=== PATIENT | female | born 1965 | race Caucasian/White ===

== ENCOUNTER 2021-04-14 13:33 | Emergency (ER) | payer OTHER ==
[2021-04-14 14:58] LABS: CORONAVIRUS COVID-19 NAA NEGATIVE (NEGATIVE)
[2021-04-14] MEDS ORDERED: Ondansetron 4 MG/2 ML SDV IVPUSH ONE (15:26)
[2021-04-14] MEDS ORDERED: Acetaminophen 325 MG Tab PO ONE ×2 (15:27→18:19)
[2021-04-14] MEDS ORDERED: Sodium Chloride 0.9% 1,000 ML IV SCH ×2 (15:30→18:15)
[2021-04-14] MEDS ORDERED: Ketorolac 30 MG/ML SDV IVPUSH ONE (18:02)
[2021-04-14] MEDS ORDERED: Ibuprofen 600 MG Tab PO ONE (18:05)
--- NOTE | 2021-04-14 18:09 | EDM.PDOC ---
<Jennifer Mendosa - Last Filed: 04/14/21 18:32> ED HPI GENERAL MEDICAL PROBLEM - General Chief Complaint: Fever Stated Complaint: DIZZY, SOB, HEADACHE, TEMP 102.6 Time Seen by Provider: 04/14/21 13:55 Source of Information: Reports: Patient, Family History Limitations: Reports: No Limitations - History of Present Illness INITIAL COMMENTS - FREE TEXT/NARRATIVE: pt started having marked diarrhea in the nite and she had about 12 stools before am. she is cramping and is having a severe headache. She has been nauseated but has not been vomiting. Onset: Other (started in the nite. ) Duration: Hour(s): Location: Reports: Head, Abdomen Associated Symptoms: Reports: Fever/Chills, Nausea/Vomiting, Other ( severe diarrhea. ) Headache Pain Score (Numeric/FACES): 6 - Related Data Allergies Allergy/AdvReac Type Severity Reaction Status Date / Time cat dander Allergy Other Verified 04/14/21 13:58 dog dander Allergy Other Verified 04/14/21 13:58 latex Allergy Rash Verified 04/14/21 13:58 lidocaine Allergy Other Verified 04/14/21 13:58 Home Meds: Home Meds Docusate Sodium [Colace] 100 mg PO DAILY 03/27/21 [History] Ferrous Sulfate 325 mg PO DAILY 03/27/21 [History] Gabapentin [Neurontin] 600 mg PO TID 03/27/21 [History] Losartan [Cozaar] 25 mg PO DAILY 03/27/21 [History] Pramipexole Di-HCl [Pramipexole Dihydrochloride] 0.5 mg PO DAILY 03/27/21 [History] Pramipexole Di-HCl [Pramipexole Dihydrochloride] 1 mg PO BID 03/27/21 [History] Riboflavin 400 mg PO DAILY 03/27/21 [History] Warfarin [Coumadin] 5 mg PO DAILY 03/27/21 [History] Past Medical History HEENT History: Reports: Impaired Vision Cardiovascular History: Reports: Hypertension Respiratory History: Reports: PE, Sleep Apnea Other Respiratory History: cpap Gastrointestinal History: Reports: Chronic Constipation [employer]ER History: Reports: Musculoskeletal History: Reports: Arthritis, Back Pain, Chronic Neurological History: Reports: Migraines Endocrine/Metabolic History: Reports: Obesity/BMI 30+ Hematologic History: Reports: Anticoagulation Therapy - Past Surgical History Head Surgeries/Procedures: Reports: None HEENT Surgical History: Reports: None Cardiovascular Surgical History: Reports: None Respiratory Surgical History: Reports: None GI Surgical History: Reports: Hernia, Abdominal Endocrine Surgical History: Reports: None Neurological Surgical History: Reports: None Musculoskeletal Surgical History: Reports: Other (See Below) Other Musculoskeletal Surgeries/Procedures:: right knee Dermatological Surgical History: Reports: None Social & Family History - Tobacco Use Tobacco Use Status *Q: Never Tobacco User Second Hand Smoke Exposure: No - Caffeine Use Caffeine Use: Reports: None - Recreational Drug Use Recreational Drug Use: No ED ROS GENERAL - Review of Systems Review Of Systems: See Below Constitutional: Reports: Weakness, Fatigue HEENT: Reports: No Symptoms Respiratory: Reports: No Symptoms Cardiovascular: Reports: No Symptoms Endocrine: Reports: No Symptoms GI/Abdominal: Reports: Diarrhea, Nausea : Reports: No Symptoms Musculoskeletal: Reports: No Symptoms Skin: Reports: No Symptoms ED EXAM, GENERAL - Physical Exam Exam: See Below Free Text/Narrative:: pt appeared to be very uncomfortable on arrival. She had a severe headache. She was having marked diarrhea. Exam Limited By: No Limitations General Appearance: Alert, Anxious, Moderate Distress, Other (pupils are equal and reactive. ) Ears: Normal TMs Nose: Normal Inspection Throat/Mouth: Normal Inspection Head: Atraumatic Neck: Normal Inspection Respiratory/Chest: No Respiratory Distress Cardiovascular: Regular Rate, Rhythm GI/Abdominal: Tender (Female) Exam: Deferred Rectal (Female) Exam: Deferred Back Exam: Normal Inspection Extremities: Normal Inspection Neurological: Alert, Oriented, Normal Cognition Course - Re-Assessments/Exams Free Text/Narrative Re-Assessment/Exam: 04/14/21 18:10 lab work showed mild dehydration. She has had only one stool since she has been here she still has a bad headache Departure - Departure Disposition: Home, Self-Care 01 Clinical Impression: Viral gastroenteritis, Dehydration - Discharge Information Instructions: Viral Gastroenteritis, Adult, Dehydration, Adult, [id number] Referrals: PCP,None [Primary Care Provider] - Forms: ED Department Discharge Care Plan Goals: Make sure to drink plenty of fluids to keep up with what is loss through diarrhea. I would recommend an electrolyte-based solution like Pedialyte or Gatorade Zero. I have also included a prescription in the [employer] machine for Zofran in case you become nauseated. Please return to the ED if you start to de velop any additional symptoms. Sepsis Event Note (ED) - Evaluation Sepsis Screening Result: Possible Sepsis Risk <Jac Amador - Last Filed: 04/14/21 20:21> Course - Vital Signs Last Recorded V/S: Last Vital Signs Temp 38.7 C H 04/14/21 14:02 Pulse 93 04/14/21 14:02 Resp 20 04/14/21 14:02 BP 141/79 H 04/14/21 14:02 Pulse Ox 97 04/14/21 14:02 - Orders/Labs/Meds Orders: Active Orders 24 hr Category Date Time Status Chest 1V Frontal [CR] Stat Exams 04/14/21 16:50 Taken Head wo Cont [CT] Stat Exams 04/14/21 19:39 Taken CULTURE BLOOD [BC] Urgent Lab 04/14/21 15:30 Received CULTURE BLOOD [BC] Urgent Lab 04/14/21 15:40 Received CULTURE URINE [RM] Stat Lab 04/14/21 15:31 Received Sodium Chloride 0.9% [Normal Saline] 1,000 ml Med 04/14/21 15:30 Active IV ASDIRECTED Sodium Chloride 0.9% [Normal Saline] 1,000 ml Med 04/14/21 18:15 Active IV ASDIRECTED Blood Culture x2 Reflex Set [OM.PC] Urgent Oth 04/14/21 15:28 Ordered Isolation [COMM] Stat Oth 04/14/21 14:00 Ordered Medication Orders Sodium Chloride (Normal Saline) 1,000 mls @ 999 mls/hr IV ASDIRECTED [facility] Last Admin: 04/14/21 15:40 Dose: 999 mls/hr Documented by: ARCADIO Sodium Chloride (Normal Saline) 1,000 mls @ 999 mls/hr IV ASDIRECTED [facility] Last Admin: 04/14/21 18:15 Dose: 999 mls/hr Documented by: KELSEY Labs: Laboratory Tests 04/14/21 04/14/21 04/14/21 Range/Units 14:10 14:13 14:13 WBC 7.7 (4.5-11.0) K/uL RBC 4.72 (3.30-5.50) M/uL Hgb 13.5 (12.0-15.0) g/dL Hct 41.8 (36.0-48.0) % MCV 89 (80-98) fL MCH 29 (27-31) pg MCHC 32 (32-36) % Plt Count 279 (150-400) K/uL Neut % (Auto) 82.0 H (36-66) % Lymph % (Auto) 11.3 L (24-44) % Person % (Auto) 5.4 (2-6) % Eos % (Auto) 1.2 L (2-4) % Baso % (Auto) 0.1 (0-1) % PT 15.9 H (9.5-12.0) sec INR 1.47 H (0.80-1.20) Sodium 142 (140-148) mmol/L Potassium 3.7 (3.6-5.2) mmol/L Chloride 105 (100-108) mmol/L Carbon Dioxide 27 (21-32) mmol/L Anion Gap 10.1 (5.0-14.0) mmol/L BUN 19 H (7-18) mg/dL Creatinine 1.1 H (0.6-1.0) mg/dL Est Cr Clr Drug Dosing 56.92 mL/min Estimated GFR (MDRD) 51 L (>60) Glucose 96 (74-106) mg/dL Calcium 8.4 L (8.5-10.1) mg/dL Total Bilirubin 0.5 (0.2-1.0) mg/dL AST 15 (15-37) U/L ALT 39 (12-78) U/L Alkaline Phosphatase 56 (46-116) U/L Total Protein 6.7 (6.4-8.2) g/dL Albumin 3.4 (3.4-5.0) g/dL Globulin 3.3 (2.3-3.5) g/dL Albumin/Globulin Ratio 1.0 L (1.2-2.2) Urine Color (YELLOW) Urine Appearance (CLEAR) Urine pH (5.0-8.0) Ur Specific [place] (1.008-1.030) Urine Protein (NEGATIVE) mg/dL Urine Glucose (UA) (NEGATIVE) mg/dL Urine Ketones (NEGATIVE) mg/dL Urine Occult Blood (NEGATIVE) Urine Nitrite (NEGATIVE) Urine Bilirubin (NEGATIVE) Urine Urobilinogen (0.2-1.0) EU/dL Ur Leukocyte Esterase (NEGATIVE) Urine RBC (0-5) Urine WBC (0-5) Ur Epithelial Cells Amorphous Sediment Urine Bacteria Urine Mucus Influenza Type A RNA (NEGATIVE) RSV RNA (INAAT) (NEGATIVE) Influenza Type B RNA (NEGATIVE) SARS-CoV-2 RNA (ROBERTO) (NEGATIVE) 04/14/21 04/14/21 Range/Units 14:15 15:10 WBC (4.5-11.0) K/uL RBC (3.30-5.50) M/uL Hgb (12.0-15.0) g/dL Hct (36.0-48.0) % MCV (80-98) fL MCH (27-31) pg MCHC (32-36) % Plt Count (150-400) K/uL Neut % (Auto) (36-66) % Lymph % (Auto) (24-44) % Person % (Auto) (2-6) % Eos % (Auto) (2-4) % Baso % (Auto) (0-1) % PT (9.5-12.0) sec INR (0.80-1.20) Sodium (140-148) mmol/L Potassium (3.6-5.2) mmol/L Chloride (100-108) mmol/L Carbon Dioxide (21-32) mmol/L Anion Gap (5.0-14.0) mmol/L BUN (7-18) mg/dL Creatinine (0.6-1.0) mg/dL Est Cr Clr Drug Dosing mL/min Estimated GFR (MDRD) (>60) Glucose (74-106) mg/dL Calcium (8.5-10.1) mg/dL Total Bilirubin (0.2-1.0) mg/dL AST (15-37) U/L ALT (12-78) U/L Alkaline Phosphatase (46-116) U/L Total Protein (6.4-8.2) g/dL Albumin (3.4-5.0) g/dL Globulin (2.3-3.5) g/dL Albumin/Globulin Ratio (1.2-2.2) Urine Color Yellow (YELLOW) Urine Appearance Cloudy A (CLEAR) Urine pH 7.0 (5.0-8.0) Ur Specific [place] 1.020 (1.008-1.030) Urine Protein Negative (NEGATIVE) mg/dL Urine Glucose (UA) Negative (NEGATIVE) mg/dL Urine Ketones Negative (NEGATIVE) mg/dL Urine Occult Blood Negative (NEGATIVE) Urine Nitrite Negative (NEGATIVE) Urine Bilirubin Negative (NEGATIVE) Urine Urobilinogen 0.2 (0.2-1.0) EU/dL Ur Leukocyte Esterase Negative (NEGATIVE) Urine RBC 0-5 (0-5) Urine WBC 0-5 (0-5) Ur Epithelial Cells Many Amorphous Sediment Not seen Urine Bacteria Moderate Urine Mucus Moderate Influenza Type A RNA Negative (NEGATIVE) RSV RNA (INAAT) Negative (NEGATIVE) Influenza Type B RNA Negative (NEGATIVE) SARS-CoV-2 RNA (ROBERTO) Negative (NEGATIVE) Meds: Medications Generic Name Dose Route Start Last Admin Trade Name Freq PRN Reason Stop Dose Admin Sodium Chloride 1,000 mls @ 999 mls/hr 04/14/21 15:30 04/14/21 15:40 Normal Saline IV 999 mls/hr ASDIRECTED [facility] Administration Sodium Chloride 1,000 mls @ 999 mls/hr 04/14/21 18:15 04/14/21 18:15 Normal Saline IV 999 mls/hr ASDIRECTED [facility] Administration Discontinued Medications Generic Name Dose Route Start Last Admin Trade Name Freq PRN Reason Stop Dose Admin Acetaminophen 650 mg 04/14/21 15:27 04/14/21 15:39 Acetaminophen 325 Mg Tab PO 04/14/21 15:28 650 mg NOW ONE Administration Acetaminophen 650 mg 04/14/21 18:19 04/14/21 18:27 Acetaminophen 325 Mg Tab PO 04/14/21 18:20 650 mg NOW ONE Administration Ibuprofen 600 mg 04/14/21 18:05 04/14/21 18:20 Ibuprofen 600 Mg Tab PO 04/14/21 18:06 Not Given ONETIME ONE Ketorolac Tromethamine 30 mg 04/14/21 18:02 04/14/21 18:15 Ketorolac 30 Mg/Ml Sdv IVPUSH 04/14/21 18:03 30 mg ONETIME ONE Administration Ondansetron HCl 4 mg 04/14/21 15:26 04/14/21 15:39 Ondansetron 4 Mg/2 Ml Sdv IVPUSH 04/14/21 15:27 4 mg ONETIME ONE Administration - Re-Assessments/Exams Free Text/Narrative Re-Assessment/Exam: 04/14/21 18:30 Dr. Amador is assuming care of the patient from Dr. Mendosa. At this time, the patient received a dose of Toradol for her headache. We will reassess to see if there is any improvement. 04/14/21 19:40 the patient is doing better after the Toradol concerning the headache, however, I do not have a good explanation for having the severe headache. Patient does have a remote history for migraine headaches, but has not had any recent headaches and starting on B2 and magnesium. We did discuss the pros and cons of doing a CT of the brain to rule out any bleed especially since she is on anticoagulation. She is agreeable to this so we will proceed with a noncontrast CT of the head to rule out any intracranial process. 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 This time, I believe the patient is suitable for discharge home in satisfactory condition. Indications return to the ED were discussed. I recommended that she hydrate with the electrolyte- based solution like Gatorade Zero or Pedialyte. Departure - Departure Time of Disposition: 20:19 Sepsis Event Note (ED) - Focused Exam Vital Signs: Vital Signs Temp Pulse Resp BP Pulse Ox 04/14/21 14:02 38.7 C H 93 20 141/79 H 97 04/14/21 13:59 38.7 C H 93 20 141/79 H 97 - My Orders Last 24 Hours: My Active Orders 04/14/21 19:39 Head wo Cont [CT] Stat - Assessment/Plan Last 24 Hours: My Active Orders 04/14/21 19:39 Head wo Cont [CT] Stat
--- NOTE | 2021-04-14 20:33 | CRLCT ---
For Patients: As a result of the Century Cures Act, medical imaging exams and procedure reports are released immediately into your electronic medical record. You may view this report before your referring provider. If you have questions, please contact your health care provider. Indication : Severe headache Technique : Noncontrast head CT FINDINGS: No acute intracranial hemorrhage, edema, or mass effect. Mild prominence of the sella and/or pituitary gland is nonspecific but likely benign. Minimal mucosal thickening involving frontal and ethmoidal sinuses. Mild cerebral atrophy. Remainder negative. IMPRESSION: 1. No acute intracranial disease. 2. The sella and/or pituitary are mildly prominent. If clinically desired, findings could be correlated to follow-up routine MRI of the pituitary gland. Suspect benign etiology. 3. Mild cerebral atrophy. Please note that all CT scans at this facility use dose modulation, iterative reconstruction, and/or weight-based dosing when appropriate to reduce radiation dose to as low as reasonably achievable. Dictated by Simon Whitt MD @ 04/14/2021 8:32:[address] Simon Whitt @ Apr 14 2021 8:32PM
--- NOTE | 2021-04-15 13:19 | CR ---
CHEST: Portable 04/14/2021 at 5:12 PM CLINICAL HISTORY:Fever COMPARISON:None FINDINGS: The heart is enlarged. Pulmonary vascularity is normal. There are atherosclerotic changes in the aorta. There is streaky density in the left midlung field. This likely represent some scarring or streaky atelectasis. Impression: No acute cardiac pulmonary process Mild cardiomegaly
== END 2021-04-14 20:23 | disposition home or self-care (01) ==
LOC: JP.ED 13:33
DX: A08.4 Viral intestinal infection, unspecified (principal); E86.0 Dehydration; I10 Essential (primary) hypertension; E66.9 Obesity, unspecified; Z68.41 Body mass index [BMI] 40.0-44.9, adult; Z86.711 Personal history of pulmonary embolism; Z79.01 Long term (current) use of anticoagulants; Z79.899 Other long term (current) drug therapy; Z91.048 Other nonmedicinal substance allergy status; Z91.040 Latex allergy status; Z88.4 Allergy status to anesthetic agent; Z20.822 Contact with and (suspected) exposure to COVID-19
CPT/HCPCS: 0241U; 36415; 70450; 71045; 80053; 81001; 85025; 85610; 87040; 87086; 96374; 96375; 99284; A9270; J1885; J2405; J7030

== ENCOUNTER 2021-06-10 06:48 | Day surgery (SDC) | payer OTHER ==
[~2021-06-10 06:48] MED LIST: Bupivacaine 0.5% 50 ML MDV ONE
[2021-06-10] MEDS ORDERED: Lactated Ringers 1,000 ML IV SCH (07:00)
[2021-06-10] MEDS ORDERED: Nozin Nasal Sanitizer NASBOTH ONE (07:00)
[2021-06-10] MEDS ORDERED: Propofol 200 MG/20 ML SDV ONE (07:27)
[2021-06-10] MEDS ORDERED: Midazolam 1 MG/ML 2 ML SDV ONE (07:27)
[2021-06-10] MEDS ORDERED: fentaNYL 100 MCG/2 ML SDV ONE (07:27)
[2021-06-10] MEDS ORDERED: Bupivacaine 0.5% 50 ML MDV ONE (07:42)
[2021-06-10] MEDS ORDERED: ceFAZolin 2 GM in Premix Bag 1 BAG IV ONE (08:30)
[2021-06-10] MEDS ORDERED: Acetaminophen/HYDROcodone 325-5 MG Tab PO ONE (10:38)
--- NOTE | 2021-07-22 20:45 | OR ---
DATE OF PROCEDURE: 06/10/2021 SURGEON: Juan Hoffmann MD PREOPERATIVE DIAGNOSIS: Stenosing tenosynovitis, right 4th finger. POSTOPERATIVE DIAGNOSIS: Stenosing tenosynovitis, right 4th finger. PROCEDURE PERFORMED: Release of A1 zakiya, trigger finger release, right 4th finger. ANESTHESIA: Local with sedation. INDICATIONS: Kiley is a 56-year-old female with a history of significant stenosing tenosynovitis of the right 4th finger. The finger consistently locks in flexion. She has worn a brace to maintain extension at the metacarpophalangeal joint. She has tried physical therapy and injection without relief. She now presents for release. Risks, benefits, potential complications were discussed. DESCRIPTION OF PROCEDURE: After adequate anesthesia was obtained, the patient placed supine. Right hand is prepped and draped in sterile fashion. A small transverse incision was made in line with the flexion crease over the A1 zakiya. This was carried down through the subcutaneous tissues and blunt dissection used to come down on to the flexor tendons. Zakiya is divided with a 15 blade under direct visualization. Division is completed with the tenotomy scissor proximally and distally. Contents of the tunnel including both flexor tendons were evaluated with no significant mass. The finger was taken through range of motion with no evidence of catching or locking. The wound was irrigated. It was then closed with #4 nylon in interrupted fashion. Skin was infiltrated with 0.5% Marcaine and a sterile dressing was applied. The patient tolerated procedure well. No complications. Taken from the operating room in stable condition. Juan Hoffmann MD /[id number] [facility]
== END 2021-06-10 11:25 | disposition home or self-care (01) ==
LOC: JP.SDS 06:48
PROVIDERS: ATTEND Specialist
DX: M65.841 Other synovitis and tenosynovitis, right hand (principal); M65.341 Trigger finger, right ring finger; G47.33 Obstructive sleep apnea (adult) (pediatric)
CPT/HCPCS: 26055; 36415; 80053; 85025; A9270; J0690; J2250; J2704; J3010; J3490; J7120

== ENCOUNTER 2022-03-26 21:38 | Emergency (ER) | payer OTHER ==
[2022-03-27] MEDS ORDERED: Ketorolac 30 MG/ML SDV IVPUSH ONE (01:46)
[2022-03-27] MEDS ORDERED: Methocarbamol 500 MG Tab PO ONE (02:00)
[2022-03-27] MEDS ORDERED: HYDROmorphone 1 MG/ML Syringe IVPUSH ONE (02:00)
== END 2022-03-27 03:38 | disposition home or self-care (01) ==
LOC: JP.ED 21:38
DX: M62.838 Other muscle spasm (principal); I10 Essential (primary) hypertension; E66.9 Obesity, unspecified; Z68.42 Body mass index [BMI] 45.0-49.9, adult; Z86.16 Personal history of COVID-19; Z79.899 Other long term (current) drug therapy; Z79.01 Long term (current) use of anticoagulants; Z91.09 Other allergy status, other than to drugs and biological substances; Z91.040 Latex allergy status; Z88.4 Allergy status to anesthetic agent
CPT/HCPCS: 96374; 96375; 99282; 99283; A9270; J1170; J1885

== ENCOUNTER 2023-03-18 19:56 | Emergency (ER) | payer OTHER | END 2023-03-18 21:06 | disposition home or self-care (01) | LOC: JP.ED 19:56 | DX: S80.01XA Contusion of right knee, initial encounter (principal); I10 Essential (primary) hypertension; E66.9 Obesity, unspecified; Z68.45 Body mass index [BMI] 70 or greater, adult; Z86.16 Personal history of COVID-19; Z86.711 Personal history of pulmonary embolism; Z79.01 Long term (current) use of anticoagulants; Z79.899 Other long term (current) drug therapy; Z91.040 Latex allergy status; Z91.048 Other nonmedicinal substance allergy status; Z88.4 Allergy status to anesthetic agent; W01.0XXA Fall on same level from slipping, tripping and stumbling without subsequent striking against object, initial encounter | CPT/HCPCS: 73564-RT; 99283 ==

== ENCOUNTER 2025-04-28 14:20 | Emergency (ER) | payer OTHER ==
[2025-04-28 14:43] LABS: BASOPHILS ABSOLUTE AUTO 0.03 K/uL (0.00-0.10); BASOPHILS PERCENT AUTO 0.4 % (0.1-1.3); EOSINOPHILS ABSOLUTE AUTO 0.16 K/uL (0.00-0.40); EOSINOPHILS PERCENT AUTO 2.2 % (0.0-5.4); IMMATURE GRAN PERCENT AUTO 0.1 % (0.0-0.7); LYMPHOCYTES ABSOLUTE AUTO 1.50 K/uL (0.8-3.3); LYMPHOCYTES PERCENT AUTO 20.9 % (11.4-47.7); MONOCYTES ABSOLUTE AUTO 0.71 K/uL (0.20-0.90); MONOCYTES PERCENT AUTO 9.9 % (3.3-12.6); NEUTROPHILS ABSOLUTE AUTO 4.75 K/uL (1.0-7.6); NEUTROPHILS PERCENT AUTO 66.5 % (40.0-78.1); PLATELET COUNT,PLT 293 K/uL (130-375); RED BLOOD CELL COUNT 4.23 M/uL (3.77-5.24); WHITE BLOOD CELL COUNT,WBC 7.2 K/uL (3.2-11.0)
[2025-04-28 14:44] LABS: IMMATURE GRAN ABSOLUTE AUTO 0.01 K/uL (0.00-0.23)
[2025-04-28 14:47] LABS: BASE EXCESS VENOUS 8.4 mm/L; BICARBONATE,VENOUS 30.0 mmol/L; O2 SATURATION VENOUS 54.9; OXYHEMOGLOBIN 53.0 %; PCO2 VENOUS 30.2 mm/Hg; PH,VENOUS 7.603 (7.350-7.450); TOTAL HEMOGLOBIN 12.7 g/dL (12.0-16.0)
[2025-04-28 14:57] LABS: PO2 VENOUS 26.7 mm/Hg
[2025-04-28] MEDS: LORazepam 2 MG/ML SDV IVPUSH ONE ×2 (15:06→17:45)
[2025-04-28 15:13] LABS: A/G RATIO 1.1 (1.2-2.2); ALANINE AMINOTRANSFERASE,ALT 32 U/L (12-78); ASPARTATE AMNIOTRANSFERASE,AST 23 U/L (15-37); BILIRUBIN TOTAL 0.6 mg/dL (0.2-1.0); BLOOD UREA NITROGEN,BUN 16 mg/dL (7-18); CARBON DIOXIDE,CO2 31 mmol/L (21-32); CHLORIDE,CL 101 mmol/L (100-108); CREATININE 1.3 mg/dL (0.6-1.0); EST CRCL DRUG DOSING (CG) 45.84 mL/min; ESTIMATED GFR 47 mL/min (>60); GLUCOSE RANDOM 90 mg/dL (74-106); PROTEIN TOTAL,TP 6.8 g/dL (6.4-8.2); SODIUM,NA 141 mmol/L (140-148)
[2025-04-28 15:18] LABS: POTASSIUM,K 2.8 mmol/L (3.6-5.2)
[2025-04-28] MEDS: Iopamidol 755 Mg/ML 100 ML Bottle IV SCH (17:39)
[2025-04-28] MEDS: Potassium Chloride 10 MEQ in Premix Bag 4 BAG IV SCH (17:53)
[2025-04-28] MEDS: Potassium Chloride 20 MEQ Tab.ER PO ONE (17:53)
[2025-04-28 17:56] LABS: APPEARANCE,URINE CLEAR (CLEAR); GLUCOSE,URINE NEGATIVE (NEGATIVE); OCCULT BLOOD,URINE NEGATIVE (NEGATIVE)
[2025-04-28 18:07] LABS: EPITHELIAL CELLS,URINE OCCASIONAL
[2025-04-28 21:48] LABS: BLOOD UREA NITROGEN,BUN 16.0 mg/dL (7-18); CARBON DIOXIDE,CO2 30.0 mmol/L (21-32); CHLORIDE,CL 103.0 mmol/L (100-108); CREATININE 1.1 mg/dL (0.6-1.0); EST CRCL DRUG DOSING (CG) 54.18 mL/min; ESTIMATED GFR 57.0 mL/min (>60); GLUCOSE RANDOM 119.0 mg/dL (74-106); POTASSIUM,K 3.1 mmol/L (3.6-5.2); SODIUM,NA 141.0 mmol/L (140-148)
[2025-04-28 23:20] LABS: BLOOD UREA NITROGEN,BUN 16.0 mg/dL (7-18); CARBON DIOXIDE,CO2 33.0 mmol/L (21-32); CHLORIDE,CL 107.0 mmol/L (100-108); CREATININE 1.1 mg/dL (0.6-1.0); EST CRCL DRUG DOSING (CG) 54.18 mL/min; ESTIMATED GFR 57.0 mL/min (>60); GLUCOSE RANDOM 114.0 mg/dL (74-106); POTASSIUM,K 3.3 mmol/L (3.6-5.2); SODIUM,NA 143.0 mmol/L (140-148)
== END 2025-04-29 00:02 | disposition home or self-care (01) ==
LOC: JP.ED 14:20
DX: E87.6 Hypokalemia (principal); E80.6 Other disorders of bilirubin metabolism; I10 Essential (primary) hypertension; E78.00 Pure hypercholesterolemia, unspecified; E66.9 Obesity, unspecified; Z86.16 Personal history of COVID-19; Z79.899 Other long term (current) drug therapy; Z79.01 Long term (current) use of anticoagulants; Z91.040 Latex allergy status; Z88.3 Allergy status to other anti-infective agents; Z91.048 Other nonmedicinal substance allergy status; Z68.37 Body mass index [BMI] 37.0-37.9, adult
CPT/HCPCS: 36415; 70450; 71045; 71275; 80048; 80053; 81001; 82803; 83735; 84132; 84484; 85025; 85379; 93005; 93010; 96361; 96365; 96366; 96375; 96376; 99284; 99285; A9270; J2060; J3480; J7030; Q9967

== ENCOUNTER 2025-05-27 15:59 | Inpatient (IN) | payer OTHER ==
[2025-05-27 18:29] LABS: BASOPHILS PERCENT AUTO 0.2 % (0.1-1.3); EOSINOPHILS ABSOLUTE AUTO 0.06 K/uL (0.00-0.40); EOSINOPHILS PERCENT AUTO 0.7 % (0.0-5.4); IMMATURE GRAN ABSOLUTE AUTO 0.03 K/uL (0.00-0.23); IMMATURE GRAN PERCENT AUTO 0.3 % (0.0-0.7); LYMPHOCYTES ABSOLUTE AUTO 1.26 K/uL (0.8-3.3); LYMPHOCYTES PERCENT AUTO 13.9 % (11.4-47.7); MONOCYTES ABSOLUTE AUTO 0.66 K/uL (0.20-0.90); MONOCYTES PERCENT AUTO 7.3 % (3.3-12.6); NEUTROPHILS ABSOLUTE AUTO 7.03 K/uL (1.0-7.6); NEUTROPHILS PERCENT AUTO 77.6 % (40.0-78.1); PLATELET COUNT,PLT 269 K/uL (130-375); RED BLOOD CELL COUNT 4.22 M/uL (3.77-5.24); WHITE BLOOD CELL COUNT,WBC 9.1 K/uL (3.2-11.0)
[2025-05-27 18:30] LABS: BASOPHILS ABSOLUTE AUTO 0.02 K/uL (0.00-0.10)
[2025-05-27] MEDS: Ondansetron 4 MG/2 ML SDV IVPUSH ONE (18:40)
[2025-05-27 18:51] LABS: A/G RATIO 1.1 (1.2-2.2); ALANINE AMINOTRANSFERASE,ALT 25 U/L (12-78); ASPARTATE AMNIOTRANSFERASE,AST 17 U/L (15-37); BILIRUBIN TOTAL 1.2 mg/dL (0.2-1.0); BLOOD UREA NITROGEN,BUN 17 mg/dL (7-18); CARBON DIOXIDE,CO2 28 mmol/L (21-32); CHLORIDE,CL 99 mmol/L (100-108); CREATININE 1.0 mg/dL (0.6-1.0); EST CRCL DRUG DOSING (CG) 59.60 mL/min; ESTIMATED GFR 64 mL/min (>60); GLUCOSE RANDOM 93 mg/dL (74-106); POTASSIUM,K 2.9 mmol/L (3.6-5.2); PROTEIN TOTAL,TP 7.1 g/dL (6.4-8.2); SODIUM,NA 138 mmol/L (140-148)
[2025-05-27] MEDS: Sodium Chloride 0.9% 10 ML Syringe FLUSH ONE (18:55)
[2025-05-27] MEDS: Iopamidol 612 MG/ML 100 ML Bottle IV PRN (18:55)
[2025-05-27] MEDS: Potassium Chloride 20 MEQ Tab.ER PO ONE (19:26)
[2025-05-27 20:50] LABS: APPEARANCE,URINE CLEAR (CLEAR); GLUCOSE,URINE NEGATIVE (NEGATIVE); OCCULT BLOOD,URINE TRACE-INTACT (NEGATIVE)
[2025-05-27 20:57] LABS: SQUAMOUS EPITHELIAL CELLS,UR RARE /HPF; UROTHELIAL CELLS,URINE NOT SEEN /HPF
[2025-05-27] MEDS ORDERED: Naloxone 0.4 MG/ML SDV IVPUSH PRN (23:04)
[2025-05-27] MEDS ORDERED: LORazepam 2 MG/ML SDV IV PRN (23:04)
[2025-05-28] MEDS: Acetaminophen/HYDROcodone 325-5 MG Tab PO PRN (02:11)
[2025-05-28 06:02] LABS: BASOPHILS ABSOLUTE AUTO 0.04 K/uL (0.00-0.10); BASOPHILS PERCENT AUTO 0.5 % (0.1-1.3); EOSINOPHILS ABSOLUTE AUTO 0.05 K/uL (0.00-0.40); EOSINOPHILS PERCENT AUTO 0.6 % (0.0-5.4); IMMATURE GRAN ABSOLUTE AUTO 0.03 K/uL (0.00-0.23); IMMATURE GRAN PERCENT AUTO 0.4 % (0.0-0.7); LYMPHOCYTES ABSOLUTE AUTO 1.47 K/uL (0.8-3.3); LYMPHOCYTES PERCENT AUTO 18.7 % (11.4-47.7); MONOCYTES ABSOLUTE AUTO 0.73 K/uL (0.20-0.90); MONOCYTES PERCENT AUTO 9.3 % (3.3-12.6); NEUTROPHILS ABSOLUTE AUTO 5.55 K/uL (1.0-7.6); NEUTROPHILS PERCENT AUTO 70.5 % (40.0-78.1); PLATELET COUNT,PLT 228 K/uL (130-375); RED BLOOD CELL COUNT 3.61 M/uL (3.77-5.24); WHITE BLOOD CELL COUNT,WBC 7.9 K/uL (3.2-11.0)
[2025-05-28 06:17] LABS: BLOOD UREA NITROGEN,BUN 16.0 mg/dL (7-18); CARBON DIOXIDE,CO2 30.0 mmol/L (21-32); CHLORIDE,CL 104.0 mmol/L (100-108); CREATININE 1.0 mg/dL (0.6-1.0); EST CRCL DRUG DOSING (CG) 59.6 mL/min; ESTIMATED GFR 64.0 mL/min (>60); GLUCOSE RANDOM 104.0 mg/dL (74-106); POTASSIUM,K 3.8 mmol/L (3.6-5.2); SODIUM,NA 139.0 mmol/L (140-148)
[2025-05-28] MEDS: Ketorolac 30 MG/ML SDV IVPUSH ONE (09:54)
[2025-05-28] MEDS: Norepinephrine Bit/D5W Premix 4 MG in Premix Bag 1 BAG IV SCH (15:02)
[2025-05-28] MEDS: Hydrocortisone Sodium Succinate 100 MG/2 ML SDV IVPUSH ONE (15:10)
[2025-05-28] MEDS: Norepinephrine Bit/D5W Premix 250 ML ONE (15:23)
[2025-05-28] MEDS: Ketorolac 15 MG/ML SDV IVPUSH SCH (15:58)
[2025-05-29 08:45] LABS: BASOPHILS ABSOLUTE AUTO 0.03 K/uL (0.00-0.10); BASOPHILS PERCENT AUTO 0.5 % (0.1-1.3); EOSINOPHILS ABSOLUTE AUTO 0.16 K/uL (0.00-0.40); EOSINOPHILS PERCENT AUTO 2.5 % (0.0-5.4); IMMATURE GRAN PERCENT AUTO 0.3 % (0.0-0.7); LYMPHOCYTES ABSOLUTE AUTO 1.73 K/uL (0.8-3.3); LYMPHOCYTES PERCENT AUTO 27.5 % (11.4-47.7); MONOCYTES ABSOLUTE AUTO 0.52 K/uL (0.20-0.90); MONOCYTES PERCENT AUTO 8.3 % (3.3-12.6); NEUTROPHILS ABSOLUTE AUTO 3.83 K/uL (1.0-7.6); NEUTROPHILS PERCENT AUTO 60.9 % (40.0-78.1); PLATELET COUNT,PLT 212 K/uL (130-375); RED BLOOD CELL COUNT 3.61 M/uL (3.77-5.24); WHITE BLOOD CELL COUNT,WBC 6.3 K/uL (3.2-11.0)
[2025-05-29 08:47] LABS: IMMATURE GRAN ABSOLUTE AUTO 0.02 K/uL (0.00-0.23)
[2025-05-29 09:05] LABS: A/G RATIO 0.8 (1.2-2.2); ALANINE AMINOTRANSFERASE,ALT 21 U/L (12-78); ASPARTATE AMNIOTRANSFERASE,AST 15 U/L (15-37); BILIRUBIN TOTAL 0.3 mg/dL (0.2-1.0); BLOOD UREA NITROGEN,BUN 14 mg/dL (7-18); CARBON DIOXIDE,CO2 28 mmol/L (21-32); CHLORIDE,CL 108 mmol/L (100-108); CREATININE 0.8 mg/dL (0.6-1.0); EST CRCL DRUG DOSING (CG) 74.49 mL/min; ESTIMATED GFR 84 mL/min (>60); GLUCOSE RANDOM 149 mg/dL (74-106); POTASSIUM,K 3.9 mmol/L (3.6-5.2); PROTEIN TOTAL,TP 5.8 g/dL (6.4-8.2); SODIUM,NA 143 mmol/L (140-148)
[2025-05-29] MEDS: SODIUM CHLORIDE 0.9% IV ONE (12:33)
[2025-05-29] MEDS: VANCOMYCIN IV ONE (12:33)
[2025-05-29] MEDS: Gadoteridol 279.3 MG/ML 20 ML SDV IV SCH (14:23)
[2025-05-30 06:10] LABS: CREATININE 0.7 mg/dL (0.6-1.0); EST CRCL DRUG DOSING (CG) 85.14 mL/min; ESTIMATED GFR 98.0 mL/min (>60); VANCOMYCIN RANDOM 23.6 ug/mL (0.0-50.0)
[2025-05-30 08:20] LABS: PLATELET COUNT,PLT 216.0 K/uL (130-375); RED BLOOD CELL COUNT 3.36 M/uL (3.77-5.24); WHITE BLOOD CELL COUNT,WBC 4.8 K/uL (3.2-11.0)
[2025-05-31 07:52] LABS: CREATININE 0.6 mg/dL (0.6-1.0); EST CRCL DRUG DOSING (CG) 99.33 mL/min; ESTIMATED GFR 102.0 mL/min (>60)
[2025-06-01 06:45] LABS: CREATININE 0.6 mg/dL (0.6-1.0); EST CRCL DRUG DOSING (CG) 99.33 mL/min; ESTIMATED GFR 102.0 mL/min (>60); VANCOMYCIN RANDOM 26.2 ug/mL (0.0-50.0)
[2025-06-01 11:11] LABS: BASOPHILS PERCENT AUTO 0.4 % (0.1-1.3); EOSINOPHILS ABSOLUTE AUTO 0.28 K/uL (0.00-0.40); EOSINOPHILS PERCENT AUTO 6.2 % (0.0-5.4); IMMATURE GRAN PERCENT AUTO 0.2 % (0.0-0.7); LYMPHOCYTES ABSOLUTE AUTO 1.74 K/uL (0.8-3.3); LYMPHOCYTES PERCENT AUTO 38.3 % (11.4-47.7); MONOCYTES ABSOLUTE AUTO 0.38 K/uL (0.20-0.90); MONOCYTES PERCENT AUTO 8.4 % (3.3-12.6); NEUTROPHILS ABSOLUTE AUTO 2.11 K/uL (1.0-7.6); NEUTROPHILS PERCENT AUTO 46.5 % (40.0-78.1); PLATELET COUNT,PLT 242 K/uL (130-375); RED BLOOD CELL COUNT 3.40 M/uL (3.77-5.24); WHITE BLOOD CELL COUNT,WBC 4.5 K/uL (3.2-11.0)
[2025-06-01 11:19] LABS: BASOPHILS ABSOLUTE AUTO 0.02 K/uL (0.00-0.10); IMMATURE GRAN ABSOLUTE AUTO 0.01 K/uL (0.00-0.23)
[2025-06-01 11:21] LABS: A/G RATIO 0.9 (1.2-2.2); ALANINE AMINOTRANSFERASE,ALT 25 U/L (12-78); ASPARTATE AMNIOTRANSFERASE,AST 23 U/L (15-37); BILIRUBIN TOTAL 0.2 mg/dL (0.2-1.0); BLOOD UREA NITROGEN,BUN 18 mg/dL (7-18); CARBON DIOXIDE,CO2 25 mmol/L (21-32); CHLORIDE,CL 107 mmol/L (100-108); CREATININE 0.6 mg/dL (0.6-1.0); EST CRCL DRUG DOSING (CG) 99.33 mL/min; ESTIMATED GFR 102 mL/min (>60); GLUCOSE RANDOM 96 mg/dL (74-106); POTASSIUM,K 4.0 mmol/L (3.6-5.2); PROTEIN TOTAL,TP 5.7 g/dL (6.4-8.2); SODIUM,NA 142 mmol/L (140-148)
== END 2025-06-02 15:15 | disposition home or self-care (01) | DRG 540 ==
LOC: JP.ED 15:59 → JP.MS 22:39 → OBSVTOIN 05-28 11:24 → JP.ICU 05-28 14:53 → JP.MS 05-30 15:56
PROVIDERS: ADMIT Internal Medicine; ATTEND Student in an Organized Health Care Education/Training Program
DX: M46.26 Osteomyelitis of vertebra, lumbar region (principal); N39.0 Urinary tract infection, site not specified; M54.42 Lumbago with sciatica, left side; J30.9 Allergic rhinitis, unspecified; H54.7 Unspecified visual loss; E87.6 Hypokalemia; E83.42 Hypomagnesemia; Z88.4 Allergy status to anesthetic agent; G47.30 Sleep apnea, unspecified; K59.09 Other constipation; Z91.040 Latex allergy status; Z91.048 Other nonmedicinal substance allergy status; R00.1 Bradycardia, unspecified; G89.29 Other chronic pain; G43.909 Migraine, unspecified, not intractable, without status migrainosus; E66.9 Obesity, unspecified; Z68.34 Body mass index [BMI] 34.0-34.9, adult; Z79.01 Long term (current) use of anticoagulants; Z98.890 Other specified postprocedural states; Z79.899 Other long term (current) drug therapy; Z88.8 Allergy status to other drugs, medicaments and biological substances; I10 Essential (primary) hypertension; E78.00 Pure hypercholesterolemia, unspecified; Z96.659 Presence of unspecified artificial knee joint; Z86.711 Personal history of pulmonary embolism; M19.90 Unspecified osteoarthritis, unspecified site; Z86.16 Personal history of COVID-19
CPT/HCPCS: 36415 ×2; 70450; 71045 ×2; 74177; 80048; 80053; 81001; 83605; 83735 ×2; 85025 ×2; 86140; 87040 ×2; 96361 ×2; 96374; 96375 ×2; 96376; 99222; 99285; G0378 ×2; J0696; J1885; J2270 ×2; J2405; J3373; J7030 ×4; J7040 ×2; Q9967; 72158; 72158-26; 80202; 82565; 84484; 85018; 85027; 93005; 93306; 99232; 99239; A9270-GY; A9579; C1751; J0692; J1720; J7050